=== PATIENT | male | born 1990 | race African-American/Black ===

== ENCOUNTER 2019-07-13 00:47 | Emergency (ER) | payer SELFPAY ==
[~2019-07-13] VITALS: Ht 177.8 cm; Wt 86.2 kg
[2019-07-13 01:00] VITALS: BP 126/79
--- NOTE | 2019-07-13 01:00 | NUR ---
ED Nurse Note: Patient walked into ED c/o sore throat for the past 4 days, reports of sharp pain to ears when swallowing. oral tempe of 101F. No SOB. Breathing even and unlabored.
[2019-07-13] MEDS ORDERED: Augmentin 875mg Tab ORAL ONE (01:15)
[2019-07-13] MEDS ORDERED: Ketorolac 60mg Inj IM ONE (01:15)
[2019-07-13] MEDS ORDERED: AUGMENTIN 875-1 EAC1 ORAL (01:33)
[2019-07-13] MEDS ORDERED: IBUPROFEN600 MG ORAL (01:33)
--- NOTE | 2019-07-13 01:38 | NUR ---
ED Nurse Note: Pt cleared by ERMD for discharge. DC instructions/prescription was given and explained to pt and verbalized understanding of teachings. All medical deviecs such as ID band removed. Pt is AAO x4, ambulatory and left with all personal belongings.
--- NOTE | 2019-07-13 03:43 | Emergency Room Report ---
History of Present Illness General Chief Complaint: Sore Throat Source: Patient Present Illness HPI Patient presents with complaints of sore throat ongoing for the past 3 days Also complains of low-grade fever Pain is 5 out of 10 Denies any posterior neck pain or photophobia denies any chest pain patient has a mild runny nose as well denies any recent travel denies any focal weakness or rash Allergies: Coded Allergies: No Known Allergies (Unverified , 07/13/19) Patient History Past Medical History: see triage record Reviewed Nursing Documentation: PMH: Agreed; PSxH: Agreed Nursing Documentation-PMH Past Medical History: No Stated History Review of Systems All Other Systems: negative except mentioned in HPI Physical Exam Vital Signs Date Time Temp Pulse Resp B/P (MAP) Pulse Ox O2 Delivery O2 Flow Rate FiO2 07/13/19 00:54 100.9 91 18 126/79 (95) 97 Room Air Sp02 EP Interpretation: reviewed, normal General Appearance: well appearing, no apparent distress Head: normocephalic, atraumatic Eyes: bilateral eye PERRL, bilateral eye EOMI ENT: uvula midline, pharyngeal erythema, other - Normal voice Neck: supple Respiratory: lungs clear, no retraction Cardiovascular #1: regular rate, rhythm Gastrointestinal: non tender, soft Genitourinary: no CVA tenderness Musculoskeletal: back normal Neurologic: alert Psychiatric: normal inspection Skin: no rash Lymphatic: no adenopathy Medical Decision Making Diagnostic Impression: Primary Impression: pharyngitis ER Course Multiple differentials including but not limited to retropharyngeal abscess, peritonsillar abscess, pharyngitis considered Patient's voice is normal uvula is midline pharyngeal erythema Is likely consistent with pharyngitis patient treated for the pain and antibiotics given on initial dose here and will require close outpatient follow- up Last Vital Signs Date Time Temp Pulse Resp B/P (MAP) Pulse Ox O2 Delivery O2 Flow Rate FiO2 07/13/19 01:38 100.9 91 18 126/79 97 Room Air Status: improved Disposition: HOME, SELF-CARE Condition: Improved Scripts Amoxicillin/Potassium Clav 875-125* (AUGMENTIN 875-125 TABLET*) 1 Each Tablet 1 TAB ORAL TWICE A DAY, #14 TAB Prov: Ivette Ramsey DO 07/13/19 Ibuprofen* (MOTRIN*) 600 Mg Tablet 600 MG ORAL Q8H PRN for For Pain, #20 TAB 0 Refills Prov: Ivette Ramsey DO 07/13/19 Referrals: NOT CHOSEN IPA/,REFERRING (PCP) [facility] Patient Instructions: Pharyngitis, [id number] Additional Instructions: Patient is provided with the discharge instructions notified to follow up with primary doctor in the next 2-3 days otherwise return to the er with any worsening symptoms. Please note that this report is being documented using [employer] technology. This can lead to erroneous entry secondary to incorrect interpretation by the dictating instrument. Ivette Ramsey DO Jul 13, 2019 03:43
== END 2019-07-13 01:38 | disposition home or self-care (01) ==
LOC: EMR 01:38
DX: J02.9 Acute pharyngitis, unspecified (principal)
CPT/HCPCS: 96372; 99283